=== PATIENT | female | born 1995 | race Caucasian/White ===

== ENCOUNTER 2017-07-26 12:00 | Inpatient (IN) | payer MEDICAID ==
[2017-07-27] MEDS ORDERED: ceFAZolin 2 GM in Premix Bag 1 BAG IV ONE (09:41)
[2017-07-27] MEDS ORDERED: Sodium Chloride 0.9% 10 ML Syringe FLUSH PRN (09:41)
[2017-07-27] MEDS ORDERED: Sodium Chloride 0.9% 2.5 ML Syringe FLUSH PRN (09:41)
[2017-07-27] MEDS ORDERED: Citric Acid/Sodium Citrate Solution 30 ML Cup PO SCH (09:45)
[2017-07-27] MEDS ORDERED: Oxytocin/0.9 % Sodium Chloride 30 UNIT/500 ML BAG IV SCH (09:45)
[2017-07-27] MEDS: Lactated Ringers 1,000 ML IV SCH ×2 (10:03→11:01)
--- NOTE | 2017-07-27 11:10 | PCM.LDHP ---
L&D History of Present Illness - General Date of Service: 07/27/17 Admit Problem/Dx: Patient Status Order with Admit Dx/Problem 07/27/17 09:41 Patient Status [ADT] Routine Admission Diagnosis/Problem Admission Diagnosis/Problem Source of Information: Patient History Limitations: Reports: No Limitations - History of Present Illness Improves with: Reports: None Worsens with: Reports: None Associated Symptoms: Reports: N - Related Data Allergies/Adverse Reactions: Allergies Allergy/AdvReac Type Severity Reaction Status Date / Time Penicillins Allergy PCN Verified 07/22/17 11:50 allergy runs in family Home Medications: Home Meds PNV95/Ferrous Fumarate/FA [ Vitamin Tablet] 1 tab PO DAILY 07/22/17 [ History] Past Medical History - Past Health History Medical/Surgical History: Denies Medical/Surgical History Gastrointestinal History: Reports: GERD Genitourinary History: Reports: None 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: Neurological History: Reports: Other (See Below) Other Neuro History: "bleeding angioma since " "brain bleed" Endocrine/Metabolic History: Reports: Obesity/BMI 30+ - Past Surgical History Head Surgeries/Procedures: Reports: None HEENT Surgical History: Reports: Oral Surgery, Tonsillectomy Female Surgical History: Reports: Section Social & Family History - Tobacco Use Smoking Status *Q: Never Smoker Second Hand Smoke Exposure: No - Alcohol Use Days Per Week of Alcohol Use: 0 - Recreational Drug Use Recreational Drug Use: No H&P Review of Systems - Review of Systems: Review Of Systems: See Below General: Reports: No Symptoms HEENT: Reports: No Symptoms Pulmonary: Reports: No Symptoms Cardiovascular: Reports: No Symptoms Gastrointestinal: Reports: No Symptoms Genitourinary: Reports: No Symptoms Musculoskeletal: Reports: No Symptoms Skin: Reports: No Symptoms Psychiatric: Reports: No Symptoms Neurological: Reports: No Symptoms Hematologic/Lymphatic: Reports: No Symptoms Immunologic: Reports: No Symptoms L&D Exam - Exam Exam: See Below - Vital Signs Weight: 131.542 kg - OB Specific Fundal Height In cm: 40 Contraction Intensity: Mild Movement: Active Heart Tones: Present Presentation: Vertex - Exam General: Alert, Oriented HEENT: PERRLA, Conjunctiva Clear, EACs Clear, EOMI, Hearing Intact, Mucosa Moist & [place], Nares Patent, Normal Nasal Septum, Posterior Pharynx Clear, TMs Clear Neck: Supple, Trachea Midline Lungs: Clear to Auscultation, Normal Respiratory Effort Cardiovascular: Regular Rate, Regular Rhythm GI/Abdominal Exam: Normal Bowel Sounds, Soft, Non-Tender, No Organomegaly, No Distention, No Abnormal Bruit, No Mass, Pelvis Stable Rectal Exam: Normal Exam, Normal Rectal Tone Genitourinary: Normal external exam, Normal bimanual exam, Normal speculum exam Back Exam: Normal Inspection, Full Range of Motion Extremities: Normal Inspection, Normal Range of Motion, Non-Tender, No Pedal Edema, Normal Capillary Refill Skin: Warm, Dry, Intact Neurological: Cranial Nerves Intact, Reflexes Equal Bilateral Psychiatric: Alert, Normal Affect, Normal Mood - Patient Data Lab Results Last 24 hrs: Laboratory Results - last 24 hr 07/27/17 07/27/17 Range/Units 09:55 09:55 WBC 9.23 (4.0-11.0) K/uL RBC 4.61 (4.30-5.90) M/uL Hgb 13.7 (12.0-16.0) g/dL Hct 41.2 (36.0-46.0) % MCV 89.4 (80.0-98.0) fL MCH 29.7 (27.0-32.0) pg MCHC 33.3 (31.0-37.0) g/dL RDW Std Deviation 43.3 (28.0-62.0) fl RDW Coeff of Stephanie 13 (11.0-15.0) % Plt Count 287 (150-400) K/uL MPV 10.70 (7.40-12.00) fL Nucleated RBC % 0.0 /100WBC Nucleated RBCs # 0 K/uL Blood Type O POSITIVE Antibody Screen NEGATIVE Result Diagrams: 07/27/17 09:55 Problem List Initiated/Reviewed/Updated: Yes Orders Last 24hrs: Active Orders 24 hr Category Date Time Status Patient Status [ADT] Routine ADT 07/27/17 09:41 Active Non Stress Test [RC] PER UNIT ROUTINE Care 07/27/17 09:41 Active Notify Provider Vital Signs [RC] PRN Care 07/27/17 09:43 Active Procedure Site Prep Instruct [RC] ASDIRECTED Care 07/27/17 09:41 Active Up ad Christelle [RC] ASDIRECTED Care 07/27/17 09:41 Active Verify Patient Consent Obtain [RC] ASDIRECTED Care 07/27/17 09:41 Active Vital Signs [RC] PER UNIT ROUTINE Care 07/27/17 09:41 Active Citric Acid/Sodium Citrate [Bicitra Solution] Med 07/27/17 09:45 Active 30 ml PO .ONCE Lactated Ringers [Ringers, Lactated] 1,000 ml Med 07/27/17 09:45 Active IV .BOLUS Oxytocin/0.9 % Sodium Chloride [Oxytocin 30 Unit/500 ML Med 07/27/17 09:45 Active -NS] 30 unit in 500 ml IV TITRATE Sodium Chloride 0.9% [Saline Flush] Med 07/27/17 09:41 Active 10 ml FLUSH ASDIRECTED PRN Sodium Chloride 0.9% [Saline Flush] Med 07/27/17 09:41 Active 2.5 ml FLUSH ASDIRECTED PRN Peripheral IV Insertion Adult [OM.PC] Routine Oth 07/27/17 09:41 Ordered Schedule Procedure [COMM] Per Unit Routine Oth 07/27/17 09:41 Ordered Resuscitation Status Routine Resus Stat 07/27/17 09:41 Ordered Medication Orders Citric Acid/Sodium Citrate (Bicitra Solution) 30 ml PO .ONCE BENI Last Admin: 07/27/17 10:28 Dose: 30 ml Lactated Ringer's (Ringers, Lactated) 1,000 mls @ 500 mls/hr IV .BOLUS BENI Last Admin: 07/27/17 11:01 Dose: 500 mls/hr Infusion: 07/27/17 11:01 Dose: 500 mls/hr Admin: 07/27/17 10:03 Dose: 500 mls/hr Oxytocin/Sodium Chloride (Oxytocin 30 Unit/500 Ml-Ns) 30 unit in 500 mls @ 250 mls/hr IV TITRATE BENI Sodium Chloride (Saline Flush) 10 ml FLUSH ASDIRECTED PRN PRN Reason: Keep Vein Open Sodium Chloride (Saline Flush) 2.5 ml FLUSH ASDIRECTED PRN PRN Reason: Keep Vein Open Assessment/Plan Comment:: This patient is done she is admitted for elective repeat section with bilateral salpingectomy the patient and approved by the committee for tubal ligation 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
[2017-07-27] MEDS ORDERED: Morphine PF 10 MG/10 ML SDV ONE (11:18)
[2017-07-27] MEDS ORDERED: fentaNYL 100 MCG/2 ML SDV ONE (11:18)
[2017-07-27] MEDS ORDERED: diphenhydrAMINE 50 MG/ML SDV ONE (11:19)
[2017-07-27] MEDS ORDERED: Ondansetron 4 MG/2 ML SDV ONE (11:19)
[2017-07-27] MEDS ORDERED: Sodium Chloride 0.9% 20 ML ONE (11:19)
[2017-07-27] MEDS ORDERED: Oxytocin 10 Units/1 ML SDV ONE (11:19)
[2017-07-27] MEDS ORDERED: Ketorolac 30 MG/ML SDV ONE (11:19)
--- NOTE | 2017-07-27 11:21 | PCM.PREANE ---
Preanesthetic Assessment - Anesthesia/Transfusion/Family Hx Anesthesia History: Prior Anesthesia Without Reaction Family History of Anesthesia Reaction: No Transfusion History: No Prior Transfusion(s) Intubation History: Unknown - Review of Systems General: No Symptoms Pulmonary: No Symptoms Cardiovascular: No Symptoms Gastrointestinal: No Symptoms Neurological: No Symptoms Other: Reports: None - Physical Assessment Height: 1.75 m Weight: 131.542 kg ASA Class: 2 Mental Status: Alert & Oriented x3 Airway Class: Mallampati = 2 Dentition: Reports: Normal Dentition (upper and lower ratainer) Thyro-Mental Finger Breadths: 3 Mouth Opening Finger Breadths: 3 ROM/Head Extension: Full Lungs: Clear to Auscultation, Normal Respiratory Effort Cardiovascular: Regular Rate, Regular Rhythm - Lab Values: Laboratory Last Values WBC 9.23 K/uL (4.0-11.0) 07/27/17 09:55 RBC 4.61 M/uL (4.30-5.90) 07/27/17 09:55 Hgb 13.7 g/dL (12.0-16.0) 07/27/17 09:55 Hct 41.2 % (36.0-46.0) 07/27/17 09:55 MCV 89.4 fL (80.0-98.0) 07/27/17 09:55 MCH 29.7 pg (27.0-32.0) 07/27/17 09:55 MCHC 33.3 g/dL (31.0-37.0) 07/27/17 09:55 RDW Std Deviation 43.3 fl (28.0-62.0) 07/27/17 09:55 RDW Coeff of Stephanie 13 % (11.0-15.0) 07/27/17 09:55 Plt Count 287 K/uL (150-400) 07/27/17 09:55 MPV 10.70 fL (7.40-12.00) 07/27/17 09:55 Nucleated RBC % 0.0 /100WBC 07/27/17 09:55 Nucleated RBCs # 0 K/uL 07/27/17 09:55 Blood Type O POSITIVE 12 09:55 Antibody Screen NEGATIVE 07/27/17 09:55 - Allergies Allergies/Adverse Reactions: Allergies Allergy/AdvReac Type Severity Reaction Status Date / Time Penicillins Allergy PCN Verified 07/22/17 11:50 allergy runs in family - Blood Blood Available: No - Anesthesia Plan Pre-Op Medication Ordered: None - Acknowledgements Anesthesia Type Planned: Spinal Pt an Appropriate Candidate for the Planned Anesthesia: Yes Alternatives and Risks of Anesthesia Discussed w Pt/Guardian: Yes Pt/Guardian Understands and Agrees with Anesthesia Plan: Yes PreAnesthesia Questionnaire - Past Health History Medical/Surgical History: Denies Medical/Surgical History Gastrointestinal History: Reports: GERD Genitourinary History: Reports: None [employer]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: Neurological History: Reports: Other (See Below) Other Neuro History: 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" causing headaches Endocrine/Metabolic History: Reports: Obesity/BMI 30+ - Past Surgical History Head Surgeries/Procedures: Reports: None HEENT Surgical History: Reports: Oral Surgery, Tonsillectomy Female Surgical History: Reports: Section (under spinal anesthesia) - SUBSTANCE USE Smoking Status *Q: Never Smoker Second Hand Smoke Exposure: No Days Per Week of Alcohol Use: 0 Recreational Drug Use History: No - HOME MEDS Home Medications: Home Meds PNV95/Ferrous Fumarate/FA [ Vitamin Tablet] 1 tab PO DAILY 07/22/17 [ History] - CURRENT (IN HOUSE) MEDS Current Meds: Current Medications Citric Acid/Sodium Citrate (Bicitra Solution) 30 ml PO .ONCE BENI Last Admin: 07/27/17 10:28 Dose: 30 ml Lactated Ringer's (Ringers, Lactated) 1,000 mls @ 500 mls/hr IV .BOLUS BENI Last Admin: 07/27/17 11:01 Dose: 500 mls/hr Oxytocin/Sodium Chloride (Oxytocin 30 Unit/500 Ml-Ns) 30 unit in 500 mls @ 250 mls/hr IV TITRATE BENI Sodium Chloride (Saline Flush) 10 ml FLUSH ASDIRECTED PRN PRN Reason: Keep Vein Open Sodium Chloride (Saline Flush) 2.5 ml FLUSH ASDIRECTED PRN PRN Reason: Keep Vein Open Discontinued Medications Cefazolin Sodium/Dextrose 2 gm (/ Premix) 50 mls @ 100 mls/hr IV ONETIME ONE Stop: 07/27/17 10:10
[2017-07-27] MEDS ORDERED: fentaNYL 100 MCG/2 ML SDV IVPUSH PRN (11:26)
[2017-07-27] MEDS ORDERED: ceFAZolin 1 GM Vial ONE (11:31)
[2017-07-27] MEDS ORDERED: Phenylephrine/Normal Saline 100 MCG/ML 10 ML Syringe ONE (13:06)
[2017-07-27] MEDS ORDERED: Nalbuphine 10 MG/1 ML Vial ONE (13:09)
[2017-07-27] MEDS ORDERED: Octyl 2-Cyanoacrylate 1 Tube ONE (13:12)
[2017-07-27] MEDS: Ketorolac 30 MG/ML SDV IVPUSH SCH ×2 (13:15→19:56)
[2017-07-27] MEDS ORDERED: Lanolin 100% Cream 7 GM Tube TOP PRN (13:29)
[2017-07-27] MEDS ORDERED: Ondansetron 4 MG/2 ML SDV IV PRN (13:29)
[2017-07-27] MEDS ORDERED: Bisacodyl 10 MG Supp RECTAL PRN (13:29)
[2017-07-27] MEDS ORDERED: Lactated Ringers 1,000 ML IV SCH (13:30)
--- NOTE | 2017-07-27 13:33 | PCM.OPNOTE ---
- General Post-Op/Procedure Note Date of Surgery/Procedure: 07/27/17 Operative Procedure(s): Repeat C/ section, Bilatral Salpengectomy. Pre Op Diagnosis: IUP 39 + repeat C/section kaity permenant sterlization Post-Op Diagnosis: Same Anesthesia Technique: Spinal Primary Surgeon: Helder Leal EBL in mLs: 600 Complications: None Condition: Good
--- NOTE | 2017-07-27 14:17 | PCM.POSTAN ---
POST ANESTHESIA ASSESSMENT - MENTAL STATUS Mental Status: Alert, Oriented - RESPIRATORY Respiratory Status: Respiratory Rate WNL, Airway Patent, O2 Saturation Stable - CARDIOVASCULAR CV Status: Pulse Rate WNL, Blood Pressure Stable - GASTROINTESTINAL GI Status: No Symptoms - PAIN Pain Score: 0 - POST OP HYDRATION Hydration Status: Adequate & Stable
[2017-07-27] MEDS: Acetaminophen/oxyCODONE 325-5 MG Tab PO PRN (16:45)
[2017-07-27] MEDS: diphenhydrAMINE 50 MG/ML SDV IVPUSH PRN (16:46)
--- NOTE | 2017-07-27 19:31 | PCM48HPAN ---
Post Anesthesia Note - EVALUATION WITHIN 48HRS OF ANESTHETIC Vital Signs in Normal Range: Yes Patient Participated in Evaluation: Yes Respiratory Function Stable: Yes Airway Patent: Yes Cardiovascular Function Stable: Yes Hydration Status Stable: Yes Pain Control Satisfactory: Yes (medicated with percocet for break through pain) Nausea and Vomiting Control Satisfactory: Yes Mental Status Recovered: Yes
[2017-07-27] MEDS: Docusate Sodium 100 MG Cap PO SCH (20:00)
--- NOTE | 2017-07-27 20:00 | OR ---
SURGEON: Helder Leal MD DATE OF PROCEDURE: PREOPERATIVE DIAGNOSIS: Intrauterine 39+, previous section and desires permanent sterilization. POSTOPERATIVE DIAGNOSIS: Intrauterine 39+, previous section and desires permanent sterilization. OPERATION PERFORMED: Repeat low transverse section, bilateral total salpingectomy. 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 ANESTHESIA: Spinal, Dr. Brenner. ESTIMATED BLOOD LOSS: 650 mL. COMPLICATIONS: None. FINDINGS: Male fetus, score reported to be 8 and 9 and the weight is not available at this time. INDICATION: This patient is 22. She had a previous section. She has cranial hemangioma and she is advised by her neurosurgeon to have two pregnancies and to have tubal ligation with the 2nd one. The patient is presented to the ethic committee and the ethic committee approved bilateral tubal ligation and I informed the patient that she will have a bilateral salpingectomy. She agreed to that and she signed the consent for it. PROCEDURE IN DETAIL: The patient was brought to the OR, properly identified, and after adequate level of spinal anesthesia, the patient was prepped and draped in sterile fashion as usual. Low transverse Pfannenstiel skin incision was done. Tim's fascia, rectus fascia was opened in the direction of the incision. Peritoneal cavity is entered. Bladder flap was raised in the usual manner pushing the bladder away from the lower uterine segment. Low transverse uterine incision was done and extended manually and the fetus was in a vertex position and delivered without any problem. It was noted that there was 3 nuchal cord. The fetus cried immediately upon delivery and score is reported to be 8 and 9. The weight is not available. The placenta delivered spontaneous, complete and intact and repair of the lower uterine segment was done with 2-0 Vicryl continuous interlocking in two layers and then reperitonealization done with 3-0 Vicryl continuous and then the attention was paid to the tube on both sides, and using the Harmonic scapula, total salpingectomy was done by coagulating and transecting the mesosalpinx and detaching the tubes at attachment to the uterus. Once the bilateral salpingectomy was performed, then the peritoneal cavity evacuated completely from all blood and blood clot and closed with 3-0 Vicryl continuous and the rectus fascia was closed with #1 PDS continuous and Tim's fascia with 3-0 Vicryl continuous. Skin closed with skin clips Insorb and Dermabond. Instrument and sponge count was correct. The patient tolerated the procedure well, went to recovery room in stable general condition. ASHLEY GARCIA /[id number]
[2017-07-28] MEDS: diphenhydrAMINE 50 MG/ML SDV IVPUSH PRN (00:08)
[2017-07-28] MEDS: Ketorolac 30 MG/ML SDV IVPUSH SCH ×3 (01:40→13:58)
--- NOTE | 2017-07-28 08:47 | PCM.PNPP ---
- General Info Date of Service: 07/28/17 Functional Status: Reports: Pain Controlled - Review of Systems General: Reports: No Symptoms HEENT: Reports: No Symptoms Pulmonary: Reports: No Symptoms Cardiovascular: Reports: No Symptoms Gastrointestinal: Reports: No Symptoms Genitourinary: Reports: No Symptoms Musculoskeletal: Reports: No Symptoms Skin: Reports: No Symptoms Neurological: Reports: No Symptoms Psychiatric: Reports: No Symptoms - General Info Date of Service: 07/28/17 - Patient Data Vital Signs - Most Recent: Last Vital Signs Temp 37.0 C 07/28/17 04:00 Pulse 86 07/28/17 07:00 Resp 16 07/28/17 07:00 BP 130/70 07/28/17 04:00 Pulse Ox 96 07/28/17 07:00 Weight - Most Recent: 131.542 kg Lab Results - Last 24 Hours: Laboratory Results - last 24 hr 07/27/17 07/27/17 07/28/17 Range/Units 09:55 09:55 04:59 WBC 9.23 (4.0-11.0) K/uL RBC 4.61 (4.30-5.90) M/uL Hgb 13.7 10.4 L (12.0-16.0) g/dL Hct 41.2 31.2 L (36.0-46.0) % MCV 89.4 (80.0-98.0) fL MCH 29.7 (27.0-32.0) pg MCHC 33.3 (31.0-37.0) g/dL RDW Std Deviation 43.3 (28.0-62.0) fl RDW Coeff of Stephanie 13 (11.0-15.0) % Plt Count 287 (150-400) K/uL MPV 10.70 (7.40-12.00) fL Nucleated RBC % 0.0 /100WBC Nucleated RBCs # 0 K/uL Blood Type O POSITIVE Antibody Screen NEGATIVE Med Orders - Current: Current Medications Bisacodyl (Dulcolax) 10 mg RECTAL .ONCE PRN PRN Reason: Constipation Citric Acid/Sodium Citrate (Bicitra Solution) 30 ml PO .ONCE BENI Last Admin: 07/27/17 10:28 Dose: 30 ml Diphenhydramine HCl (Benadryl) 25 mg IVPUSH Q6H PRN PRN Reason: Itching or Nausea Last Admin: 07/28/17 00:08 Dose: 25 mg Docusate Sodium (Colace) 100 mg PO BID [facility] Last Admin: 07/27/17 20:00 Dose: 100 mg Emollient Ointment (Lansinoh Hpa) 0 gm TOP ASDIRECTED PRN PRN Reason: Sore Nipples Last Admin: 07/27/17 19:58 Dose: 7 gm Lactated Ringer's (Ringers, Lactated) 1,000 mls @ 500 mls/hr IV .BOLUS [facility] Last Admin: 07/27/17 11:01 Dose: 500 mls/hr Oxytocin/Sodium Chloride (Oxytocin 30 Unit/500 Ml-Ns) 30 unit in 500 mls @ 250 mls/hr IV TITRATE BENI Lactated Ringer's (Ringers, Lactated) 1,000 mls @ 125 mls/hr IV ASDIRECTED [facility] Ibuprofen (Motrin) 800 mg PO Q8H PRN PRN Reason: mild pain or fever Ketorolac Tromethamine (Toradol) 30 mg IVPUSH Q6H [facility] Stop: 07/28/17 13:31 Last Admin: 07/28/17 08:06 Dose: 30 mg Ondansetron HCl (Zofran) 4 mg IV Q4H PRN PRN Reason: Nausea/Vomiting Oxycodone/Acetaminophen (Percocet 325-5 Mg) 1 tab PO Q4H PRN PRN Reason: Pain (moderate 4-6) Last Admin: 07/27/17 16:45 Dose: 1 tab Oxycodone/Acetaminophen (Percocet 325-5 Mg) 2 tab PO Q4H PRN PRN Reason: Pain (moderate 4-6) Sodium Chloride (Saline Flush) 10 ml FLUSH ASDIRECTED PRN PRN Reason: Keep Vein Open Sodium Chloride (Saline Flush) 2.5 ml FLUSH ASDIRECTED PRN PRN Reason: Keep Vein Open Discontinued Medications Cefazolin Sodium (Ancef) Confirm Administered Dose 2 gm .ROUTE .STK-MED ONE Stop: 07/27/17 11:32 Diphenhydramine HCl (Benadryl) Confirm Administered Dose 50 mg .ROUTE .STK-MED ONE Stop: 07/27/17 11:20 Fentanyl (Sublimaze) Confirm Administered Dose 100 mcg .ROUTE .STK-MED ONE Stop: 07/27/17 11:19 Fentanyl (Sublimaze) 50 mcg IVPUSH Q5M PRN PRN Reason: Pain (severe 7-10) Stop: 07/27/17 15:00 Cefazolin Sodium/Dextrose 2 gm (/ Premix) 50 mls @ 100 mls/hr IV ONETIME ONE Stop: 07/27/17 10:10 Sodium Chloride (Normal Saline) Confirm Administered Dose 20 mls @ as directed .ROUTE .STK-MED ONE Stop: 07/27/17 11:20 Ketorolac Tromethamine (Toradol) Confirm Administered Dose 30 mg .ROUTE .STK- MED ONE Stop: 07/27/17 11:20 Morphine Sulfate (Duramorph Pf) Confirm Administered Dose 10 mg .ROUTE .STK-MED ONE Stop: 07/27/17 11:19 Nalbuphine HCl (Nubain) Confirm Administered Dose 10 mg .ROUTE .STK-MED ONE Stop: 07/27/17 13:10 Octyl Cyanoacrylate (Dermabond Advance) Confirm Administered Dose 1 applic .ROUTE .STK-MED ONE Stop: 07/27/17 13:13 Ondansetron HCl (Zofran) Confirm Administered Dose 4 mg .ROUTE .STK-MED ONE Stop: 07/27/17 11:20 Oxytocin (Pitocin) Confirm Administered Dose 20 unit .ROUTE .STK-MED ONE Stop: 07/27/17 11:20 Phenylephrine HCl (Phenylephrine In Ns 100 Mcg/Ml) Confirm Administered Dose 1 mg .ROUTE .STK-MED ONE Stop: 07/27/17 13:07 - Interaction Infant Disposition, : in Room with Family Interaction: Holding Infant Infant Feeding: Attempted ; Nursed Fair/Poor Support Person: - Recovery Exam Fundal Tone: Firm Fundal Level: At Umbilicus Fundal Placement: Midline Lochia Amount: Scant Lochia Color: Rubra/Red Perineum Description: Intact, Minimal Bruising/Swelling Episiotomy/Laceration: Approximated Bladder Status: Indwelling Catheter in Place Urinary Elimination: Indwelling Catheter - Exam General: Alert, Oriented HEENT: Pupils Equal Neck: Supple Lungs: Clear to Auscultation, Normal Respiratory Effort Cardiovascular: Regular Rate, Regular Rhythm GI/Abdominal Exam: Normal Bowel Sounds, Soft, Non-Tender, No Organomegaly, No Distention, No Abnormal Bruit, No Mass, Pelvis Stable Extremities: Normal Inspection, Normal Range of Motion, Non-Tender, No Pedal Edema, Normal Capillary Refill Skin: Warm, Dry, Intact Wound/Incisions: Healing Well Neurological: No New Focal Deficit Psy/Mental Status: Alert, Normal Affect, Normal Mood - Problem List Review Problem List Initiated/Reviewed/Updated: Yes - My Orders Last 24 Hours: My Active Orders 07/27/17 09:41 Procedure Site Prep Instruct [RC] ASDIRECTED Up ad Christelle [RC] ASDIRECTED Verify Patient Consent Obtain [RC] ASDIRECTED Vital Signs [RC] PER UNIT ROUTINE Sodium Chloride 0.9% [Saline Flush] 10 ml FLUSH ASDIRECTED PRN Sodium Chloride 0.9% [Saline Flush] 2.5 ml FLUSH ASDIRECTED PRN Peripheral IV Insertion Adult [OM.PC] Routine Schedule Procedure [COMM] Per Unit Routine Resuscitation Status Routine 07/27/17 09:43 Notify Provider Vital Signs [RC] PRN 07/27/17 09:45 Citric Acid/Sodium Citrate [Bicitra Solution] 30 ml PO .ONCE Lactated Ringers [Ringers, Lactated] 1,000 ml IV .BOLUS Oxytocin/0.9 % Sodium Chloride [Oxytocin 30 Unit/500 ML-NS] 30 unit in 500 ml IV TITRATE 07/27/17 13:29 Patient Status [ADT] Routine Ambulate [RC] PER UNIT ROUTINE Antiembolic Devices [RC] PER UNIT ROUTINE Communication Order [RC] PER UNIT ROUTINE Communication Order [RC] PER UNIT ROUTINE Communication Order [RC] Per Unit Routine May Shower [RC] ASDIRECTED RT Incentive Spirometry [RC] Q2HWA Vital Signs [RC] PER UNIT ROUTINE Acetaminophen/oxyCODONE [Percocet 325-5 MG] 1 tab PO Q4H PRN Acetaminophen/oxyCODONE [Percocet 325-5 MG] 2 tab PO Q4H PRN Bisacodyl [Dulcolax] 10 mg RECTAL .ONCE PRN Ibuprofen [Motrin] 800 mg PO Q8H PRN Lanolin [Lansinoh HPA] See Dose Instructions TOP ASDIRECTED PRN Ondansetron [Zofran] 4 mg IV Q4H PRN diphenhydrAMINE [Benadryl] 25 mg IVPUSH Q6H PRN Assess Lochia [WOMSER] Per Unit Routine Assess Uterine Involution [WOMSER] Per Unit Routine Breast Pump [WOMSER] Per Unit Routine Peripheral IV Discontinue [OM.PC] Routine Sequential Compression Device [OM.PC] Per Unit Routine 07/27/17 13:30 Ketorolac [Toradol] 30 mg IVPUSH Q6H Lactated Ringers [Ringers, Lactated] 1,000 ml IV ASDIRECTED 07/27/17 21:00 Docusate Sodium [Colace] 100 mg PO BID - Assessment Assessment:: Status post repeat section with bilateral salpingectomy postoperative day #1 vital signs stable postoperative pain under control no vaginal bleeding the patient is ambulating in the room for the catheter is DC - Plan Plan:: This patient is done she is admitted for elective repeat section with bilateral salpingectomy the patient and approved by the committee for tubal ligation 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 07/28/17 Regular care plan to the discharge
[2017-07-28] MEDS: Docusate Sodium 100 MG Cap PO SCH ×2 (11:54→21:20)
[2017-07-28] MEDS: Acetaminophen/oxyCODONE 325-5 MG Tab PO PRN ×2 (13:59→19:14)
[2017-07-29] MEDS: Acetaminophen/oxyCODONE 325-5 MG Tab PO PRN ×2 (00:13→07:52)
[2017-07-29] MEDS: Ibuprofen 800 MG Tab PO PRN ×2 (03:18→12:46)
[2017-07-29] MEDS: Docusate Sodium 100 MG Cap PO SCH (07:53)
--- NOTE | 2017-07-29 09:40 | PCM.PNPP ---
- General Info Date of Service: 07/29/17 Functional Status: Reports: Pain Controlled - Review of Systems General: Reports: No Symptoms HEENT: Reports: No Symptoms Pulmonary: Reports: No Symptoms Cardiovascular: Reports: No Symptoms Gastrointestinal: Reports: No Symptoms Genitourinary: Reports: No Symptoms Musculoskeletal: Reports: No Symptoms Skin: Reports: No Symptoms Neurological: Reports: No Symptoms Psychiatric: Reports: No Symptoms - General Info Date of Service: 07/29/17 - Patient Data Vital Signs - Most Recent: Last Vital Signs Temp 36.6 C 07/29/17 08:00 Pulse 84 07/29/17 04:00 Resp 18 07/29/17 08:00 BP 124/87 07/29/17 08:00 Pulse Ox 98 07/29/17 08:00 Weight - Most Recent: 131.542 kg Med Orders - Current: Current Medications Bisacodyl (Dulcolax) 10 mg RECTAL .ONCE PRN PRN Reason: Constipation Citric Acid/Sodium Citrate (Bicitra Solution) 30 ml PO .ONCE BENI Last Admin: 07/27/17 10:28 Dose: 30 ml Diphenhydramine HCl (Benadryl) 25 mg IVPUSH Q6H PRN PRN Reason: Itching or Nausea Last Admin: 07/28/17 00:08 Dose: 25 mg Docusate Sodium (Colace) 100 mg PO BID BENI Last Admin: 07/29/17 07:53 Dose: 100 mg Emollient Ointment (Lansinoh Hpa) 0 gm TOP ASDIRECTED PRN PRN Reason: Sore Nipples Last Admin: 07/27/17 19:58 Dose: 7 gm Lactated Ringer's (Ringers, Lactated) 1,000 mls @ 500 mls/hr IV .BOLUS [facility] Last Admin: 07/27/17 11:01 Dose: 500 mls/hr Oxytocin/Sodium Chloride (Oxytocin 30 Unit/500 Ml-Ns) 30 unit in 500 mls @ 250 mls/hr IV TITRATE BENI Lactated Ringer's (Ringers, Lactated) 1,000 mls @ 125 mls/hr IV ASDIRECTED BENI Ibuprofen (Motrin) 800 mg PO Q8H PRN PRN Reason: mild pain or fever Last Admin: 07/29/17 03:18 Dose: 800 mg Ondansetron HCl (Zofran) 4 mg IV Q4H PRN PRN Reason: Nausea/Vomiting Oxycodone/Acetaminophen (Percocet 325-5 Mg) 1 tab PO Q4H PRN PRN Reason: Pain (moderate 4-6) Last Admin: 07/29/17 07:52 Dose: 1 tab Oxycodone/Acetaminophen (Percocet 325-5 Mg) 2 tab PO Q4H PRN PRN Reason: Pain (moderate 4-6) Last Admin: 07/29/17 00:13 Dose: 2 tab Sodium Chloride (Saline Flush) 10 ml FLUSH ASDIRECTED PRN PRN Reason: Keep Vein Open Sodium Chloride (Saline Flush) 2.5 ml FLUSH ASDIRECTED PRN PRN Reason: Keep Vein Open Discontinued Medications Cefazolin Sodium (Ancef) Confirm Administered Dose 2 gm .ROUTE .STK-MED ONE Stop: 07/27/17 11:32 Diphenhydramine HCl (Benadryl) Confirm Administered Dose 50 mg .ROUTE .STK-MED ONE Stop: 07/27/17 11:20 Fentanyl (Sublimaze) Confirm Administered Dose 100 mcg .ROUTE .STK-MED ONE Stop: 07/27/17 11:19 Fentanyl (Sublimaze) 50 mcg IVPUSH Q5M PRN PRN Reason: Pain (severe 7-10) Stop: 07/27/17 15:00 Cefazolin Sodium/Dextrose 2 gm (/ Premix) 50 mls @ 100 mls/hr IV ONETIME ONE Stop: 07/27/17 10:10 Sodium Chloride (Normal Saline) Confirm Administered Dose 20 mls @ as directed .ROUTE .STK-MED ONE Stop: 07/27/17 11:20 Ketorolac Tromethamine (Toradol) Confirm Administered Dose 30 mg .ROUTE .STK- MED ONE Stop: 07/27/17 11:20 Ketorolac Tromethamine (Toradol) 30 mg IVPUSH Q6H BENI Stop: 07/28/17 13:31 Last Admin: 07/28/17 13:58 Dose: 30 mg Morphine Sulfate (Duramorph Pf) Confirm Administered Dose 10 mg .ROUTE .STK-MED ONE Stop: 07/27/17 11:19 Nalbuphine HCl (Nubain) Confirm Administered Dose 10 mg .ROUTE .STK-MED ONE Stop: 07/27/17 13:10 Octyl Cyanoacrylate (Dermabond Advance) Confirm Administered Dose 1 applic .ROUTE .STK-MED ONE Stop: 07/27/17 13:13 Ondansetron HCl (Zofran) Confirm Administered Dose 4 mg .ROUTE .STK-MED ONE Stop: 07/27/17 11:20 Oxytocin (Pitocin) Confirm Administered Dose 20 unit .ROUTE .STK-MED ONE Stop: 07/27/17 11:20 Phenylephrine HCl (Phenylephrine In Ns 100 Mcg/Ml) Confirm Administered Dose 1 mg .ROUTE .STK-MED ONE Stop: 07/27/17 13:07 - Infant Interaction Infant Disposition, : in Room with Family Infant Interaction: Holding Infant Feeding: Attempted ; Nursed Fair/Poor Support Person: - Recovery Exam Fundal Tone: Firm Fundal Level: At Umbilicus Fundal Placement: Midline Lochia Amount: Scant Lochia Color: Rubra/Red Perineum Description: Intact, Minimal Bruising/Swelling Episiotomy/Laceration: None Bladder Status: Voiding Urinary Elimination: Voided - Exam General: Alert, Oriented HEENT: Pupils Equal Neck: Supple Lungs: Clear to Auscultation, Normal Respiratory Effort Cardiovascular: Regular Rate, Regular Rhythm GI/Abdominal Exam: Normal Bowel Sounds, Soft, Non-Tender, No Organomegaly, No Distention, No Abnormal Bruit, No Mass, Pelvis Stable Extremities: Normal Inspection, Normal Range of Motion, Non-Tender, No Pedal Edema, Normal Capillary Refill Skin: Warm, Dry, Intact Wound/Incisions: Healing Well Neurological: No New Focal Deficit Psy/Mental Status: Alert, Normal Affect, Normal Mood - Problem List Review Problem List Initiated/Reviewed/Updated: Yes - My Orders Last 24 Hours: My Active Orders 07/29/17 Breakfast Regular Diet [DIET] - Assessment Assessment:: Status post repeat section with bilateral salpingectomy postoperative day #1 vital signs stable postoperative pain under control no vaginal bleeding the patient is ambulating in the room for the catheter is DC - Plan Plan:: This patient is done she is admitted for elective repeat section with bilateral salpingectomy the patient and approved by the committee for tubal ligation 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 07/28/17 Regular care plan to the discharge
== END 2017-07-29 13:40 | disposition home or self-care (01) | DRG 766 ==
LOC: MW.OB 07-27 09:30
PROVIDERS: ADMIT Obstetrics & Gynecology; ATTEND Obstetrics & Gynecology
PROC: 10D00Z1 Extraction of Products of Conception, Low, Open Approach (ICD-10-PCS; principal; 2017-07-27)
PROC: 0UT70ZZ Resection of Bilateral Fallopian Tubes, Open Approach (ICD-10-PCS; 2017-07-27)
DX: O34.211 Maternal care for low transverse scar from previous cesarean delivery (principal); D18.02 Hemangioma of intracranial structures; Z3A.39 39 weeks gestation of pregnancy; Z37.0 Single live birth
CPT/HCPCS: 01961; 36415; 59025; 85014; 85018; 85027; 86850; 86900; 86901; 88302; A9270-GY; J0690; J1200; J1885; J2270; J2300; J2405; J2590; J3010; J7120